=== PATIENT | female | born 1990 | race African-American/Black ===

== ENCOUNTER 2017-04-26 22:08 | Emergency (ER) | payer SELFPAY, OTHER ==
[2017-04-26] MEDS: KETOROLAC 60 MG/2 ML INJ. IM (23:10)
[2017-04-26] MEDS: diphenhydrAMINE HCL 25 MG CAPSULE PO (23:10)
[2017-04-26] MEDS: HYDROcodone/APAP 5/325MG 1 TAB TABLET PO (23:11)
[2017-04-26] MEDS: METOCLOPRAMIDE 10 MG TABLET. PO (23:11)
[2017-04-26 23:39] LABS: URINE HCG POC HCG NEGATIVE (Negative)
[2017-04-26 23:39] LABS: BILIRUBIN,URINE NEGATIVE (NEG); CLARITY,URINE CLOUDY; COLOR,URINE YELLOW; GLUCOSE,URINE NEGATIVE (NEG); NITRITE,URINE NEGATIVE (NEG); PH,URINE 7.5; PROTEIN,URINE NEGATIVE (NEG-TRACE)
[2017-04-26 23:52] LABS: BACTERIA,URINE FEW /HPF (0-FEW); RBC,URINE 0 /HPF (0-2); SQUAMOUS EPITHELIAL CELL,UR MANY /LPF
[2017-04-27] MEDS: diphenhydrAMINE HCL 25 MG CAPSULE PO (00:05)
[2017-04-27] MEDS: predniSONE 20 MG TABLET PO (00:06)
== END 2017-04-27 00:34 | disposition home or self-care (01) ==
LOC: ER 04-27 00:34
DX: R51 Headache (principal); I10 Essential (primary) hypertension
CPT/HCPCS: 81001; 81025; 96372; 99284; J1885; J7512; J8597; Q0163

== ENCOUNTER 2017-05-10 16:10 | Emergency (ER) | payer SELFPAY ==
[2017-05-11 06:46] LABS: NEGATIVE OBC STREP NEG; POSITIVE OBC STREP POS
== END 2017-05-10 16:47 | disposition home or self-care (01) ==
LOC: ER 16:10
DX: J02.0 Streptococcal pharyngitis (principal); I10 Essential (primary) hypertension
CPT/HCPCS: 87070; 87880; 99283

== ENCOUNTER 2020-10-06 12:43 | Emergency (ER) | payer OTHER ==
[~2020-10-06] VITALS: Ht 172.7 cm; Wt 95.0 kg
[~2020-10-06 12:43] MED LIST: AMOX875T PO; BUTA1CAP57 PO
[2020-10-06 13:10] VITALS: BP 134/84
[2020-10-06] MEDS ORDERED: IV NORMAL SALINE 1000ML BAG 1,000 ML IV SCH (13:30)
[2020-10-06] MEDS ORDERED: ACETAMINOPHEN 500 MG TABLET PO ONE (13:30)
[2020-10-06 13:37] LABS: BILIRUBIN,URINE NEGATIVE (NEG); CLARITY,URINE CLEAR; COLOR,URINE YELLOW; NITRITE,URINE NEGATIVE (NEG); PROTEIN,URINE NEGATIVE (NEG-TRACE)
[2020-10-06 14:02] LABS: BACTERIA,URINE FEW /HPF (0-FEW); RBC,URINE 0 /HPF (0-2)
[2020-10-06 14:13] LABS: BASO % 1 % (0-3); EOS # 0.2 x10^3/uL (0.0-0.7); EOS % 2 % (0-3); HEMATOCRIT 34.8 % (36.0-47.0); LYMPH # 2.6 x10^3/uL (1.0-4.8); LYMPH % 29 % (24-48); MEAN CORPUSCULAR HEMOGLOBIN 31 pg (25-35); MEAN CORPUSCULAR HGB CONC 34 g/dL (31-37); MEAN CORPUSCULAR VOLUME 91 fL (79-100); MONO # 0.7 x10^3/uL (0.0-1.1); MONO % 8 % (0-9); NEUT # 5.4 x10^3/uL (1.8-7.7); NEUT % 61 % (31-73); PLATELET COUNT 265 x10^3/uL (140-400); RED BLOOD COUNT 3.82 x10^6/uL (3.50-5.40); RED CELL DISTRIBUTION WIDTH 12.8 % (11.5-14.5); WHITE BLOOD COUNT 8.9 x10^3/uL (4.0-11.0)
[2020-10-06 14:28] LABS: CALCIUM 8.6 mg/dL (8.5-10.1); CREATININE 0.9 mg/dL (0.6-1.0); GFR 90.9; POTASSIUM 3.6 mmol/L (3.5-5.1)
[2020-10-06 14:33] LABS: ALBUMIN 3.6 g/dL (3.4-5.0); TOTAL BILIRUBIN 0.2 mg/dL (0.2-1.0); TOTAL PROTEIN 7.2 g/dL (6.4-8.2)
--- NOTE | 2020-10-06 14:45 | PHYS DOC ---
Past Medical History Past Medical History: Hypertension (ORVILLE RICHARDS MANAGER METROLOGY) Past Surgical History: No Surgical History (ORVILLE RICHARDS APRN) Smoking Status: Never Smoker Alcohol Use: None Drug Use: None (ORVILLE RICHARDS APRN) General Adult EDM: Chief Complaint: HEADACHE HPI: HPI: Patient is a 29 year old female who presents with 2 days of of a headache to her bilateral temples. She denies blurry vision, light sensitivity, vomiting with this, focal weakness, numbness or tingling, syncope, vision changes. She states that she is currently with her last menstrual period being August 25. She is . She does not have a primary care doctor or an OB doctor. Rates her pain 9 out of 10. She states she has intermittent low abdominal cramping. States she does have some nausea but she has had that since she found out she is . Her only past medical history has been hypertension in the past. She is not currently on any medications. (ORVILLE RICHARDS MANAGER METROLOGY) Review of Systems: Review of Systems: Constitutional: Denies fever or chills. [] Eyes: Denies change in visual acuity. [] HENT: Denies nasal congestion or sore throat. [] Respiratory: Denies cough or shortness of breath. [] Cardiovascular: Denies chest pain or edema. [] GI: + Lower intermittent abdominal pain, denies nausea, vomiting, bloody stools or diarrhea. [] : Denies dysuria. [] Musculoskeletal: Denies back pain or joint pain. [] Integument: Denies rash. [] Neurologic: +headache, denies focal weakness or sensory changes. [] Endocrine: Denies polyuria or polydipsia. [] Lymphatic: Denies swollen glands. [] Psychiatric: Denies depression or anxiety. [] (ORVILLE RICHARDS MANAGER METROLOGY) Heart Score: C/O Chest Pain: No Risk Factors: Risk Factors: DM, Current or recent (<one month) smoker, HTN, HLP, family history of CAD, obesity. Risk Scores: Score 0 - 3: 2.5% MACE over next 6 weeks - Discharge Home Score 4 - 6: 20.3% MACE over next 6 weeks - Admit for Clinical Observation Score 7 - 10: 72.7% MACE over next 6 weeks - Early Invasive Strategies (ORVILLE RICHARDS APRN) Current Medications: Current Medications Medications (Trade) Dose Ordered Sig/[place] Start Time Stop Time Status Last Admin Dose Admin Acetaminophen (Tylenol) 1,000 mg 1X ONCE 10/06/20 13:30 10/06/20 13:31 DC 10/06/20 14:09 1,000 MG Sodium Chloride 1,000 ml @ 1,000 mls/hr Q1H 10/06/20 13:30 10/06/20 14:29 DC 10/06/20 14:08 1,000 MLS/HR (ORVILLE RICHARDS APRN) Allergies: Allergies: Allergies Coded Allergies Type Severity Reaction Last Updated Verified No Known Drug Allergies 01/26/14 No (ORVILLE RICHARDS APRN) Physical Exam: PE: Constitutional: Well developed, well nourished, no acute distress, non-toxic appearance. [] HENT: Normocephalic, atraumatic, bilateral external ears normal, oropharynx moist, no oral exudates, nose normal. [] Eyes: PERRLA, EOMI, conjunctiva normal, no discharge. [] Neck: Normal range of motion, no tenderness, supple, no stridor. [] Cardiovascular:Heart rate regular rhythm, no murmur [] Lungs & Thorax: Bilateral breath sounds clear to auscultation [] Abdomen: Bowel sounds normal, soft, no tenderness, no masses, no pulsatile masses. [] Skin: Warm, dry, no erythema, no rash. [] Back: No tenderness, no CVA tenderness. [] Extremities: No tenderness, no cyanosis, no clubbing, ROM intact, no edema. [] Neurologic: Alert and oriented X 3, normal motor function, normal sensory function, no focal deficits noted. [] Psychologic: Affect normal, judgement normal, mood normal. [] Normal physical exam (ORVILLE RICHARDS APRN) Current Patient Data: Labs: Laboratory Tests Test 10/06/20 13:12 10/06/20 13:23 10/06/20 13:38 Urine Collection Type Unknown Urine Color Yellow Urine Clarity Clear Urine pH 8.0 (<5.0-8.0) Urine Specific [place] 1.010 (1.000-1.030) Urine Protein Negative mg/dL (NEG-TRACE) Urine Glucose (UA) Negative mg/dL (NEG) Urine Ketones (Stick) Negative mg/dL (NEG) Urine Blood Negative (NEG) Urine Nitrite Negative (NEG) Urine Bilirubin Negative (NEG) Urine Urobilinogen Dipstick 1.0 mg/dL (0.2 mg/dL) Urine Leukocyte Esterase Small (NEG) Urine RBC 0 /HPF (0-2) Urine WBC 1-4 /HPF (0-4) Urine Squamous Epithelial Cells Mod /LPF Urine Bacteria Few /HPF (0-FEW) POC Urine HCG, Qualitative Hcg positive (Negative) White Blood Count 8.9 x10^3/uL (4.0-11.0) Red Blood Count 3.82 x10^6/uL (3.50-5.40) Hemoglobin 12.0 g/dL (12.0-15.5) Hematocrit 34.8 % (36.0-47.0) L Mean Corpuscular Volume 91 fL (79-100) Mean Corpuscular Hemoglobin 31 pg (25-35) Mean Corpuscular Hemoglobin Concent 34 g/dL (31-37) Red Cell Distribution Width 12.8 % (11.5-14.5) Platelet Count 265 x10^3/uL (140-400) Neutrophils (%) (Auto) 61 % (31-73) Lymphocytes (%) (Auto) 29 % (24-48) Monocytes (%) (Auto) 8 % (0-9) Eosinophils (%) (Auto) 2 % (0-3) Basophils (%) (Auto) 1 % (0-3) Neutrophils # (Auto) 5.4 x10^3/uL (1.8-7.7) Lymphocytes # (Auto) 2.6 x10^3/uL (1.0-4.8) Monocytes # (Auto) 0.7 x10^3/uL (0.0-1.1) Eosinophils # (Auto) 0.2 x10^3/uL (0.0-0.7) Basophils # (Auto) 0.0 x10^3/uL (0.0-0.2) Laboratory Tests 10/06/20 13:38 Vital Signs: Vital Signs Date Time Temp Pulse Resp B/P (MAP) Pulse Ox O2 Delivery O2 Flow Rate FiO2 10/06/20 13:10 99.3 99 18 134/84 (95) 100 Room Air 99.3 (ORVILLE RICHARDS APRN) EKG: EKG: [] (ORVILLE RICHARDS APRN) Radiology/Procedures: Radiology/Procedures: [] (ORVILLE RICHARDS APRN) Radiology/Procedures: IMAGING REPORT Signed PATIENT: ALEX BILL ACCOUNT: [id number] : 1990 LOCATION: ER AGE: 29 SEX: F EXAM STATUS: REG ER ORD. PHYSICIAN: ORVILLE RICHARDS APRN REASON: ABD PAIN TECH NOTIFIED. NC PROCEDURE: OB <14 WKS W/TV OB ultrasound less than 14 weeks and transvaginal ultrasound HISTORY: and abdominal pain Sonographic examination appearance was performed by transabdominal and endovaginal technique. Static images were obtained There is a nabothian cysts in the cervix. There is a fluid collection which could be gestational sac the gestational sac diameter of 4 mm corresponds with 5 week 1 day gestational age. There is no pole or yolk sac seen. The right ovary measures 3.3 x 3.1 x 2.7 cm and has normal blood flow. There is a corpus luteal cyst. Left ovary is not seen. There is no free fluid. IMPRESSION: Possible early intrauterine or blighted ovum or miscarriage. Recommend correlation with serial quantitative beta-hCG. If the beta-hCG fails to fall precipitously to 0, a short-term follow-up ultrasound should be performed when the patient is 6 weeks in order to document a viable intrauterine and therefore exclude possible ectopic . Electronically signed by: Jimena Neri III, MD (10/06/2020 3:44 PM) [facility] DICTATED and SIGNED BY: JIMENA NERI III, MD DATE: 10/06/20 [id number] (ANTWON BALDWIN DO) Course & Med Decision Making: Course & Med Decision Making Pertinent Labs and Imaging studies reviewed. (See chart for details) See HPI. Abdomen soft and nontender. Currently having no abdominal pain denies any vaginal discharge, concern for STD or vaginal bleeding. PERRLA. No light sensitivity. Ambulatory with steady gait. Speaks in full clear sentences. Skin pink warm and dry. Vital signs within normal limits. Lungs are clear all station all lobes. Blood work is unremarkable. [] (ORVILLE RICHARDS APRN) Course & Med Decision Making I reviewed binding cutter synthetic cloth' chart, TVUS imaging and labs. B-hcg quant > 3000 with no confirmed IUP which can be an ectopic until proven otherwise if pt has any pelvic pain or vaginal bleeding (pt asymptomatic at time of discharge). Pts' discharge instructions were to follow-up with CHARGE MANAGER soon as possible. On 10/07 1944 I tried to contact patient on her phone number at [phone] twice, voicemail was not set up. I also reached her mother, Faiza Cooney, at [phone] (she confirmed two patient identifiers). She informed me patient was living with her grandmother and that she did not have a contact phone number for pt other than her cell phone. I was hung up on and attempted calling two more times to encourage mother to encourage pt to followup within 24 hours. Mother was not given any medical information regarding pts' ed visit. (ANTWON SAHU DO) Dragon Disclaimer: Dragon Disclaimer: This electronic medical record was generated, in whole or in part, using a voice recognition dictation system. (ORVILLE RICHARDS APRN) Departure Departure Impression: Primary Impression: Headache Qualified Codes: R51.9 - Headache, unspecified Additional Impressions: Qualified Codes: Z34.90 - Encounter for supervision of normal , unspecified, unspecified trimester UTI (urinary tract infection) Qualified Codes: N30.00 - Acute cystitis without hematuria Disposition: HOME / SELF CARE / HOMELESS Condition: STABLE Referrals: NO PCP (PCP) DINA RESTREPO MD Patient Instructions: ABCs of , Abdominal Pain During , General Headache Without Cause Additional Instructions: Follow-up with primary care provider or OB as soon as possible. Drink plenty of fluids. Take Tylenol for your pain. Take medication as prescribed and with food. Scripts Cephalexin (KEFLEX) 500 Mg Capsule 1 CAP PO TID, #30 CAP Prov: ORVILLE RICHARDS APRN 10/06/20 ORVILLE RICHARDS APRN Oct 06, 2020 14:45 ANTWON SAHU DO Oct 07, 2020 19:54
--- NOTE | 2020-10-06 15:46 | RAD ---
OB ultrasound less than 14 weeks and transvaginal ultrasound HISTORY: and abdominal pain Sonographic examination appearance was performed by transabdominal and endovaginal technique. Static images were obtained There is a nabothian cysts in the cervix. There is a fluid collection which could be gestational sac the gestational sac diameter of 4 mm corresponds with 5 week 1 day gestational age. There is no pole or yolk sac seen. The right ovary measures 3.3 x 3.1 x 2.7 cm and has normal blood flow. There is a corpus luteal cyst. Left ovary is not seen. There is no free fluid. IMPRESSION: Possible early intrauterine or blighted ovum or miscarriage. Recommend correlation with serial quantitative beta-hCG. If the beta-hCG fails to fall precipitously to 0, a short-term follow-up ultrasound should be perform ed when the patient is 6 weeks in order to document a viable intrauterine and ther efore exclude possible ectopic . Electronically signed by: Shawn Schafer III, MD (10/06/2020 3:44 PM) [facility]
[2020-10-06] MEDS ORDERED: CEPH500C PO (16:26)
== END 2020-10-06 16:53 | disposition home or self-care (01) ==
LOC: ER 12:43
DX: O23.11 Infections of bladder in pregnancy, first trimester (principal); Z3A.01 Less than 8 weeks gestation of pregnancy; R51.9 Headache, unspecified; I10 Essential (primary) hypertension
CPT/HCPCS: 36415; 76801; 76817; 80053; 81001; 81025; 84702; 85025; 86850; 86900; 86901; 87086; 87491; 87591; 96360; 99284; J7030